=== PATIENT | male | born 1935 | race Caucasian/White ===

== ENCOUNTER 2019-09-23 04:15 | Emergency (ER) | payer OTHER ==
[~2019-09-23] VITALS: Ht 167.6 cm; Wt 72.6 kg
[~2019-09-23 04:15] MED LIST: ASPIR 8181 MG PO; BRILINTA90 MG PO; CARVEDILOL6.25 MG PO; LIPITOR 20 MG T20 M1 PO; LISINOPRIL10 MG PO; LISINOPRIL20 MG PO
[2019-09-23] MEDS ORDERED: LORAZEPAM 0.50.5 MG PO (05:02)
[2019-09-23 05:17] VITALS: BP 210/94
--- NOTE | 2019-09-23 13:45 | EKG ---
[place] [address] ELECTROCARDIOGRAM REPORT Name: ELMER [facility]IVA 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
== END 2019-09-23 05:17 | disposition left against medical advice (07) ==
LOC: M.ERS 04:15
DX: I10 Essential (primary) hypertension (principal); Z85.46 Personal history of malignant neoplasm of prostate

== ENCOUNTER 2021-05-24 19:35 | Observation (INO) | payer BC ==
[~2021-05-24] VITALS: Ht 167.6 cm; Wt 70.3 kg
[~2021-05-24 19:35] MED LIST changes: +LORAZEPAM 0.50.5 MG PO
[2021-05-24 19:45] VITALS: BP 230/114
[2021-05-24 20:19] LABS: HEMATOCRIT 44.5 % (42.0-52.0); HEMOGLOBIN 15.4 gm/dL (14.0-18.0); MCH 33.7 pg (26.0-34.0); MCHC 34.6 g/dL (28.0-37.0); MCV 97.5 fL (80.0-100.0); MPV 8.9 fl. (7.2-11.1); NUCLEATED RBCS 0 /100WBC; PLATELET COUNT* 156 thou/uL (150-400); RBC 4.56 mil/uL (4.50-6.00); RDW-CV 13.4 % (10.5-14.5); WBC 6.7 thou/uL (4.0-11.0)
[2021-05-24 20:28] LABS: CALCIUM 8.6 mg/dL (8.5-10.1); CREATININE 0.9 mg/dL (0.6-1.3); POTASSIUM 3.8 mmol/L (3.5-5.1)
[2021-05-24 20:30] LABS: PROTIME 10.4 Seconds (9.20-11.50)
[2021-05-24 20:37] LABS: ABSOLUTE LYMPHOCYTES 0.4 thou/uL (0.8-5.3); ABSOLUTE MONOCYTES 0.3 thou/uL (0.0-1.2); ATYPICAL LYMPHS 2 %
[2021-05-24 20:38] LABS: PLATELET ESTIMATE ADEQUATE
[2021-05-24 20:39] LABS: MAGNESIUM 2.4 mg/dL (1.8-2.4); TOTAL BILIRUBIN 0.8 mg/dL (<0.1-1.0); TOTAL PROTEIN 7.3 g/dL (6.4-8.2)
[2021-05-24 23:24] VITALS: BP 168/70
[2021-05-24 23:30] VITALS: BP 170/71
--- NOTE | 2021-05-24 23:30 | NUR ---
RECEIVED REPORT FROM ER. PT TO ROOM, AMBULATED WITH SBA AND STEADY GAIT TO BED. DENIES ANY COMPLAINTS. TELEMETRY APPLIED SHOWING SR WITH OCC PVC. SEE ADMISSION ASSESSMENT AND HX. WILL CONT TO MONITOR AND ASSIST NEEDED.
[2021-05-25] MEDS ORDERED: MILK OF MA2400 MG/11 PO (04:13)
[2021-05-25 06:07] VITALS: BP 151/62
--- NOTE | 2021-05-25 06:13 | NUR ---
C/O NAUSEA WITH EMESIS INTO TRASH CAN. MESSAGE LEFT WITHOUT RETURN CALL. PT RETURNED TO SLEEP. TELEMETRY SHOWING SB. NEURO REMAINS INTACT.
--- NOTE | 2021-05-25 08:37 | EKG ---
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1935 Requested By: Blaire Arnold Order Number: [id number] MD: Kimo Hunt Measurements Intervals [place] Rate: 56 P: 17 NV: 207 QRS: -30 QRSD: 105 T: 15 QT: 460 QTc: 444 Interpretive Statements Sinus bradycardia Abnormal R-wave progression, early transition Left ventricular hypertrophy Anterior Q waves, possibly due to LVH Baseline wander in lead(s) II,III,aVR,aVL,aVF,V1,V2,V3 Compared to ECG 09/23/2019 04:22:53 rate has slowed Electronically Signed On 05-25-2021 8:36:44 CDT by Kimo Hunt [email or web address] <ELECTRONICALLY SIGNED> By: Kimo Hunt MD, [facility] 05/25/2136 46 46 Kimo Hunt MD, [facility] /EPI
[2021-05-25 09:17] VITALS: BP 176/71
[2021-05-25 11:47] LABS: CHOLESTEROL 190 mg/dL (<200); HDL CHOLESTEROL 53 mg/dL (>40); LDL CHOLESTEROL 125 mg/dL (<100); SERUM ASSESSMENT Clear; TC:HDL 3.6 Ratio (Not establshd); TRIGLYCERIDE 60 mg/dL (<150); VLDL 12 mg/dL (<40)
[2021-05-25 12:00] VITALS: BP 166/70
--- NOTE | 2021-05-25 13:54 | 2DMMODE ---
[place] [address] 2 D/M-MODE ECHOCARDIOGRAM Name: ELMER OLIVA Wolf Room: [address] [place] Lau#: [id number] Admission: 05/24/21 Attend Phys: Sherrill Aj, Discharge: Date of : 33 Date of Service: 05/25/21 1353 Report #: [id number] THIS REPORT FOR: cc: Bairon Frank MD, Matthew W. MD Blick, David R. MD [facility] ~ APPROVED REPORT Study performed: 05/25/2021 12:01:51 EXAM: Comprehensive 2D, Doppler, and color-flow Echocardiogram Patient Location: In-Patient Room #: [facility] Status: routine BSA: 1.77 HR: 53 bpm Rhythm: NSR Other Information Study Quality: Good Indications Hypertension/HDD 2D Dimensions IVSd: 7.68 (7-11mm) LVOT Diam: 22.02 (18-24mm) LVDd: 52.21 mm PWd: 9.97 (7-11mm) Ascending Ao: 36.76 (22-36mm) LVDs: 37.21 (25-40mm) Aortic Root: 35.46 mm Volumes Left Atrial Volume (Systole) LA ESV Index: 37.80 mL/m2 Aortic Valve AoV Peak Qamar.: 1.34 m/s AO Peak Gr.: 7.16 mmHg LVOT Max P.41 mmHg AO Mean Gr.: 3.68 mmHg LVOT Mean P.41 mmHg LVOT Max V: 0.92 m/s AO V2 VTI: 26.45 cm LVOT Mean V: 0.53 m/s NEVILLE (VTI): 3.42 cm2 LVOT V1 VTI: 23.77 cm AI Griggs: 2.08 m/s2 [place] [address] 2 D/M-MODE ECHOCARDIOGRAM Name: ELMER OLIVA Room: [address] Sid#: [id number] Admission: 05/24/21 Attend Phys: Sherrill Aj, Discharge: Date of : 33 Date of Service: 05/25/21 1353 Report #: [id number] AI PHT: 583.88 ms Mitral Valve E/A Ratio: 0.75 MV Decel. Time: 399.88 ms MV E Max Qamar.: 0.50 m/s MV PHT: 115.97 ms MVA (PHT): 1.90 cm2 TDI E/Lateral E': 8.33 E/Medial E': 8.33 Medial E' Qamar.: 0.06 m/s Lateral E' Qamar.: 0.06 m/s Pulmonary Valve PV Peak Qamar.: 0.84 m/s PV Peak Gr.: 2.84 mmHg Tricuspid Valve RAP Estimate: 5.00 mmHg TR Peak Gr.: 33.28 mmHg RVSP: 38.00 mmHg PA Pressure: 38.00 mmHg Left Ventricle The left ventricle is normal size. severe hypokinesis of the distal anteroseptal wall and apex There is normal left ventricular wall thickness. Left ventricular systolic function is mildly decreased. LVEF is 40-45%. Grade I - abnormal relaxation pattern. Right Ventricle The right ventricle is normal size. The right ventricular systolic function is normal. Atria Left atrium is mildly dilated. The right atrium size is normal. Aortic Valve Mild aortic valve sclerosis. Mild aortic regurgitation. There is no aortic valvular stenosis. Mitral Valve The mitral valve is normal in structure. Mild mitral regurgitation. No evidence of mitral valve stenosis. Tricuspid Valve The tricuspid valve is normal in structure. [place] [address] 2 D/M-MODE ECHOCARDIOGRAM Name: ELMER OLIVA Room: [address]#: [id number] Admission: 05/24/21 Attend Phys: Sherrill Aj, Discharge: Date of : 33 Date of Service: 05/25/21 1353 Report #: [id number] regurgitation estimated pa pressure 40 mm Hg Pulmonic Valve The pulmonary valve is normal in structure. Mild pulmonic regurgitation. Great Vessels The aortic root is normal in size. IVC is normal in size and collapses >50% with inspiration. Pericardium There is no pericardial effusion. <Conclusion> LVEF is 40-45%. severe hypokinesis of the distal anteroseptal wall and apex Left atrium is mildly dilated. Mild aortic regurgitation. Mild mitral regurgitation. Mild tricuspid regurgitation estimated pa pressure 40 mm Hg <ELECTRONICALLY SIGNED> By: Kimo Hunt MD, [facility] 05/25/21 1353 1353 1353 Kimo Hunt MD, FACC /INF
--- NOTE | 2021-05-25 15:38 | NUR ---
Pt is A&O. Resides at home with his son and DIL. Independent. No DME. No hx of HH or SNF. Goal is home at dc, no need anticipated. Neuro following. Plan CT. Anticipate dc either later today or tomorrow.
--- NOTE | 2021-05-25 16:33 | NUR ---
ASSUMED PT CARE AT 0730. PT IS A&OX4. ASSESSMENT COMPLETED. PT WITH STAND BY ASSIST TO BR TO PROMOTE SAFETY. BP MONITORED AND NOW 166/70. PT DENIES ANY PAIN, DISCOMFORT OR DIZZINESS. PT C/O CONSTIPATION, NEW ORDER FOR PRN MILK OF MAG OBTAINED AND ADMINISTERED WITH GOOD RESULTS. PT HAD A LARGE FORMED BM THIS AFTERNOON. MEDICATIONS ADMINISTERED ORDERED. SAFETY MEASURES IN PLACE.
[2021-05-25 21:00] VITALS: BP 205/89
--- NOTE | 2021-05-25 21:00 | NUR ---
RECEIVED REPORT AND ASSUMED CARE OF PT AT 1930, ASSESSMENT COMPLETED AT THIS TIME. PT ALONDRA, MARYAM TALKING ABOUT WHOM 2 YR AGO. REASSURANCE GIVEN. SON CALLED AND LONG DISCUSSION WITH HIM ABOUT GETTING ANTIDEPRESSANT MEDS AND CONT PT'S CARE. TELEMETRY ON SHOWING SB WITH 1ST AVB. WILL CONT TO MONITOR AND ASSIST NEEDED.
[2021-05-25 23:58] VITALS: BP 153/57
--- NOTE | 2021-05-26 00:19 | NUR ---
PT'S BP EARLIER 205/89, NOTIFIED AND ORDERS RECEIVED. AT MN BP 153/57, HYDALAZINE HELD. PT SLEEPING QUIETLY.
[2021-05-26 02:35] VITALS: BP 158/65
[2021-05-26 05:25] VITALS: BP 177/73
[2021-05-26 08:05] VITALS: BP 145/85
[2021-05-26 12:22] VITALS: BP 180/83
[2021-05-26] MEDS ORDERED: LIPITOR40 MG PO (13:11)
[2021-05-26] MEDS ORDERED: NORVASC5 MG PO (13:11)
[2021-05-26 13:26] VITALS: BP 180/83
--- NOTE | 2021-05-26 14:04 | NUR ---
PT DC TO HOME ABOUT 1335. IV OUT. PT STABLE UPON DISCHARGE. DISCHARGED BY THERAPY. PERSONAL BELONGINGS SENT WITH PT.
== END 2021-05-26 14:28 | disposition home or self-care (01) ==
LOC: M.ERS 19:35 → M.TBA-ER 21:48 → M.2W 21:48
PROVIDERS: Emergency Medicine; Psychiatry & Neurology Neurology; ADMIT Internal Medicine; ATTEND Internal Medicine
DX: R42 Dizziness and giddiness (principal); Z20.822 Contact with and (suspected) exposure to COVID-19; I16.0 Hypertensive urgency; I25.10 Atherosclerotic heart disease of native coronary artery without angina pectoris; I10 Essential (primary) hypertension; E78.5 Hyperlipidemia, unspecified; I48.91 Unspecified atrial fibrillation; Z79.82 Long term (current) use of aspirin; Z79.899 Other long term (current) drug therapy